=== PATIENT | male | born 1960 | race Caucasian/White ===

== ENCOUNTER 2021-11-26 15:41 | Outpatient (CLI) | payer OTHER, SELFPAY ==
[2021-11-26 13:46] LABS: Albumin* 4.7 g/dL (3.3-5.0)
[2021-11-26 13:47] LABS: Chloride* 99 mmol/L (96-114); Potassium* 4.4 mmol/L (3.6-5.1); Sodium* 138 mmol/L (135-149)
[2021-11-26 13:49] LABS: Aspartate Amino Transferase* 36 U/L (12-35); Bilirubin Total* 0.7 mg/dL (0.1-1.5); Carbon Dioxide* 28 mmol/L (20-32); Creatinine* 0.7 mg/dL (0.5-1.5); Estimated Glomerular Filt Rate 105 ml/min; Total Protein* 7.5 g/dL (6.0-8.3)
[2021-11-26 13:50] LABS: Alanine Aminotransferase* 32 U/L (4-50); Alkaline Phosphatase* 86 U/L (40-150); Blood Urea Nitrogen* 12 mg/dL (7-30); Calcium* 9.4 mg/dL (8.4-10.6); Glucose* 159 mg/dL (60-115)
[2021-12-03 02:16] LABS: Sex Hormone Binding Globulin 19 nmol/L (19-76); Testosterone, LC-MS/MS 187 ng/dL (300-720)
== END 2021-11-26 15:42 | disposition home or self-care (01) ==
PROVIDERS: PCP Family Medicine; Visit Provider Family Medicine
DX: E11.40 Type 2 diabetes mellitus with diabetic neuropathy, unspecified (principal); I10 Essential (primary) hypertension; R79.89 Other specified abnormal findings of blood chemistry
CPT/HCPCS: 80053; 84270; 84402; 84403

== ENCOUNTER 2022-01-03 09:39 | Outpatient (CLI) | payer OTHER, SELFPAY ==
--- NOTE | 2022-01-03 09:45 | CRLHL7_ITS ---
For Patients: As a result of the Century Cures Act, medical imaging exams and procedure reports are released immediately into your electronic medical record. You may view this report before your referring provider. If you have questions, please contact your health care provider. INDICATION: DECREASED PULSES RT<LT TECHNIQUE: Bilateral lower extremity arterial duplex ultrasound with color Doppler and spectral waveform analysis. COMPARISON: None. FINDINGS: Right leg: Systolic velocities are within normal limits. Color Doppler and spectral waveform analysis demonstrates triphasic waveforms are demonstrated throughout. Left leg: Systolic velocities are within normal limits. Color Doppler and spectral waveform analysis demonstrates triphasic waveforms are demonstrated throughout. IMPRESSION: No major occlusions or significant stenoses. Normal study. Dictated by Curtis Guo MD @ 01/03/2022 11:20:05 AM (Electronically Signed)
== END 2022-01-03 09:40 | disposition home or self-care (01) ==
LOC: US 09:41
PROVIDERS: PCP Family Medicine; Visit Provider Family Medicine
DX: E11.40 Type 2 diabetes mellitus with diabetic neuropathy, unspecified (principal)
CPT/HCPCS: 93926

== ENCOUNTER 2022-05-13 09:14 | Outpatient (CLI) | payer OTHER, SELFPAY ==
--- OUTSIDE RECORDS SUMMARY | 2022-05-14 05:07 | XMS_ITS | Continuity of Care Document ---
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 Role Phone Oly Villafuerte CRNA Unavailable Unavailable Allergies, Adverse Reactions, Alerts Substance Reaction Status Criticality ampicillin HivesHives Active No Information Medications Medication Instructions Dosage Effective Dates (start - stop) Status Comments cetirizine 10 mg tablet take 1 tablet by oral route every day 10 MG - Active Invokana 100 mg tablet take 1 tablet by oral route every day before the first meal of the day 100 MG - Active losartan 50 mg tablet take 1 tablet by oral route every day 50 MG - Active atorvastatin 10 mg tablet take 1 tablet by oral route every day 10 MG - Active tamsulosin 0.4 mg capsule take 1 capsule by oral route every day 1/2 hour following the same meal each day 0.4 MG - Active metformin 500 mg tablet take 1 tablet by oral route 2 times every day with morning and evening meals 500 MG - Active testosterone 20.25 mg/1.25 gram (1.62 %) transdermal gel pump apply (20.25MG) by topical route every day in the morning to each upper arm and shoulder for a total dose of 40.5mg 20.25 MG - Active TESTOSTERONE (unknown strength) apply by topical route every day in the morning to each upper arm and shoulder for a total dose of 40.5mg Not Available - No Longer Active Procedures Procedure Date Colonoscopy Flex; W/remov Les- Level Iv-surg Path Gross/micro Advance Directives Directive Yes / No Effective Date File Name No Information Encounters Encounter Description Practice Location Reason(s) For Visit Diagnoses Date Provider Providers Copied on Encounter [facility], [address] [address], [place], [place], [id number], [place] tel:[phone] [facility] No Information 2 Christo MERYL Oly. [address], [place], [place], [id number] , [place]. tel: [phone] Referring Provider: Arnel Shaw MD, [address], [place], [address] . tel:[phone] [facility], [address] [address], [place], [place], [id number], [place] tel:[phone] [facility] GI Symptoms or Concerns (chief complaint) Colorectal polypsDiverticulosi s of colon without diverticulitisEncou nter for screening for malignant neoplasm of colonBenign neoplasm of ascending colonBenign neoplasm of sigmoid colonDvrtclos of lg int w/o perforation or abscess w/o bleedingBenign neoplasm of ascending colon 2 Colin Seals. [address], [place], [place], [address] , [place]. tel: [phone] Referring Provider: Humphrey Pereyra MD, [address] [place] [address], [address]. tel:[phone] [facility], [address] [address], [place], [place], [address], [place] tel:[phone] [facility] No Information 2 Gurmeet Dent. [address], [place], [place], [address] , [place]. tel: [phone] Family History Family Member Type Diagnosis Age At Onset Father Problem (finding) Cancer, esophageal Sister Problem (finding) Cancer Immunizations Vaccine Date Status Comments SARS-COV-2 (COVID-19) vaccin e, mRNA, spike protein, LNP, preservative free, 30 mcg/0.3mL dose administered Note: [facility] bi-direct ional interface ; Source: Other Registry SARS-COV-2 (COVID-19) vaccin e, mRNA, spike protein, LNP, preservative free, 30 mcg/0.3mL dose administered Note: [facility] bi-direct ional interface ; Source: Other Registry Influenza administered Note: [facility] bi-d irectional interface ; Source: Other Registry Seasonal, quadrivalent, recombinant, injectable influenza vaccine, preservative free administered Note: [facility] bi-direct ional interface ; Source: Other Registry Seasonal, quadrivalent, recombinant, injectable influenza vaccine, preservative free administered Note: [facility] bi-direct ional interface ; Source: Other Registry tetanus toxoid, reduced diphtheria toxoid, and acellular pertussis vaccine, adsorbed administered Note: [facility] b i-directional interface ; Source: Other Registry Influenza administered Note: [facility] bi-d irectional interface ; Source: Other Registry Afluria Qd administered Note: [facility] bi-directional interface ; Source: Other Registry Prevnar 13 administered Note: [facility] bi-d irectional interface ; Source: Other Registry Afluria Qd administered Note: [facility] bi-directional interface ; Source: Other Registry Influenza, seasonal, injectable administe red Note: [facility] bi- directional interface ; Source: Other Registry Pneumovax 23 administered Note: [facility] bi-d irectional interface ; Source: Other Registry Influenza, seasonal, injectable administe red Note: [facility] bi- directional interface ; Source: Other Registry Influenza, seasonal, injectable administe red Note: [facility] bi- directional interface ; Source: Other Registry Influenza, seasonal, injectable administe red Note: [facility] bi- directional interface ; Source: Other Registry tetanus toxoid, reduced diphtheria toxoid, and acellular pertussis vaccine, adsorbed administered Note: [facility] b i-directional interface ; Source: Other Registry Influenza, seasonal, injectable administe red Note: [facility] bi- directional interface ; Source: Other Registry Influenza, seasonal, injectable administe red Note: [facility] bi- directional interface ; Source: Other Registry Influenza, seasonal, injectable administe red Note: [facility] bi- directional interface ; Source: Other Registry influenza virus vaccine, unspecified formulation administered Note: [facility] bi-di rectional interface ; Source: Other Registry Payers Payer name Insurance type Covered libertarian ID Brigitte ortez(s) [facility] [id number] Social History Type Description Quantity Date Captured Comments Sex Male Smoking Status No Information Chief Complaint And Reason For Visit No Information Reason For Referral Reason For Referral No Information Plan Of Treatment Date Type Action Status No Information History Of Present Illness Encounter Date Complaint History Of Prese nt Illness GI Symptoms or Concerns Functional Status Date Functional Assessmen t No Information Medications Administered Medication Instructions Dosage Effective Dates (start - stop) Status Comments TESTOSTERONE (unknown strength) apply by topical route every day in the morning to each upper arm and shoulder for a total dose of 40.5mg Not Available - No Longer Active Instructions Date Instruction Additional Infor mation No Information Assessments Type Assessment Date No Information Patient Care Teams Name Effective Dates (start - stop) Status Members No Information
== END 2022-05-13 09:15 | disposition home or self-care (01) ==
LOC: NFLDREF 05-14 05:01
PROVIDERS: PCP Family Medicine; Referring Provider Family Medicine; Visit Provider Family Medicine
DX: E11.9 Type 2 diabetes mellitus without complications (principal); E78.00 Pure hypercholesterolemia, unspecified; I10 Essential (primary) hypertension; R79.89 Other specified abnormal findings of blood chemistry
CPT/HCPCS: 80053; 84270; 84402; 84403

== ENCOUNTER 2022-08-19 11:08 | Outpatient (CLI) | payer OTHER, SELFPAY ==
[2022-08-19 14:05] LABS: Albumin* 4.7 g/dL (3.3-5.0); Chloride* 101 mmol/L (96-114)
[2022-08-19 14:06] LABS: Potassium* 4.2 mmol/L (3.6-5.1); Sodium* 137 mmol/L (135-149)
[2022-08-19 14:08] LABS: Alkaline Phosphatase* 74 U/L (40-150); Aspartate Amino Transferase* 50 U/L (12-35); Bilirubin Total* 0.9 mg/dL (0.1-1.5); Blood Urea Nitrogen* 13 mg/dL (7-30); Carbon Dioxide* 23 mmol/L (20-32); Creatinine* 0.6 mg/dL (0.5-1.5); Estimated Glomerular Filt Rate 110 ml/min; Total Protein* 8.2 g/dL (6.0-8.3)
[2022-08-19 14:09] LABS: Alanine Aminotransferase* 25 U/L (4-50); Calcium* 9.4 mg/dL (8.4-10.6); Glucose* 144 mg/dL (60-115); Lipase* 138 U/L (23-300)
[2022-08-22 10:11] LABS: Sex Hormone Binding Globulin 20 nmol/L (19-76); Testosterone, Adult Male 239 ng/dL (300-720); Testosterone, Free Calculation 53 pg/mL (47-244); Testosterone, Percentage Free 2.2 % (1.6-2.9)
== END 2022-08-19 11:09 | disposition home or self-care (01) ==
PROVIDERS: PCP Family Medicine; Visit Provider Family Medicine
DX: E11.9 Type 2 diabetes mellitus without complications (principal); E78.00 Pure hypercholesterolemia, unspecified; I10 Essential (primary) hypertension; R79.89 Other specified abnormal findings of blood chemistry
CPT/HCPCS: 80053; 80061; 83690; 84270; 84402; 84403

== ENCOUNTER 2022-09-19 15:46 | Outpatient (CLI) | payer OTHER, SELFPAY | END 2022-09-19 15:47 | disposition home or self-care (01) | LOC: LKVREF 15:48 | PROVIDERS: PCP Family Medicine; Visit Provider Family Medicine | DX: E11.9 Type 2 diabetes mellitus without complications (principal); Z12.5 Encounter for screening for malignant neoplasm of prostate | CPT/HCPCS: 84153 ==

== ENCOUNTER 2022-12-07 07:29 | Outpatient (CLI) | payer OTHER, SELFPAY ==
[2022-12-07 09:46] VITALS: BP 126/85; PULSE 90; RESP 16
[2022-12-07] MEDS: SODIUM CHLORIDE 0.9 % (FLUSH) 10 ML SYRINGE IVF (09:48)
[2022-12-07] MEDS: REGADENOSON 0.4 MG/5 ML SYRINGE IVP (09:48)
--- NOTE | 2022-12-07 09:55 | PM.ST ---
Stress Test Note Date Date of test: 12/07/22 Providers Primary care provider: Humphrey Pereyra Stress test physician: Dl Barrera Stress Test Note Stress test ordered: Lexiscсергей Indication for test: Preoperative, chest pain Stress test medicine: Lexiscan Results discussion: Patient is a very nice gentleman presents here for preoperative examination, and Lexiscan, he is going to undergo back surgery, and can not walk on the treadmill. Discussion the risks benefits and side effects of the test are discussed with him, he accepts these like to proceed, cardiac stress test medical history form is reviewed entirely. Preoperative EKG shows normal sinus rhythm, with a ventricular rate of 75, blood pressure 136/81. No acute ST wave changes are noted. Some mild at T-wave changes are noted. Which appear to be old. Lexiscan nonwalking protocol is done for duration of 5 minutes, his maximum heart rate was 105, which is 77% of the maximum, during this test he was asymptomatic. There is no ST wave changes suggestive of ischemia, there is no dysrhythmias, and recovered normally Impression: Negative electrographic portion of Lexiscan. Follow up suggested: Await nuclear images which will be read by Cardiology and nuclear Medicine, clinical correlation with these will be needed. Patient was asymptomatic and back to baseline on leaving the hospital.
== END 2022-12-07 10:40 | disposition home or self-care (01) ==
LOC: STRESS 07:29
PROVIDERS: PCP Family Medicine; Visit Provider Family Medicine
DX: Z01.818 Encounter for other preprocedural examination (principal); R07.9 Chest pain, unspecified
CPT/HCPCS: 78452; 93016; 93017; A9500; J2785

== ENCOUNTER 2022-12-23 09:21 | Outpatient (CLI) | payer OTHER, SELFPAY | END 2022-12-23 09:22 | disposition home or self-care (01) | LOC: NFLDREF 12-29 09:29 | PROVIDERS: PCP Family Medicine; Referring Provider Family Medicine; Visit Provider Family Medicine | DX: E11.40 Type 2 diabetes mellitus with diabetic neuropathy, unspecified (principal); R79.89 Other specified abnormal findings of blood chemistry; E11.9 Type 2 diabetes mellitus without complications | CPT/HCPCS: 80053; 80061; 82043; 82570; 84270; 84402; 84403 ==

== ENCOUNTER 2023-04-06 08:48 | Outpatient (CLI) | payer OTHER, SELFPAY | END 2023-04-06 08:49 | disposition home or self-care (01) | LOC: NFLDREF 04-17 15:46 | PROVIDERS: PCP Family Medicine; Referring Provider Family Medicine; Visit Provider Family Medicine | DX: R79.89 Other specified abnormal findings of blood chemistry (principal) | CPT/HCPCS: 80053; 84270; 84402; 84403 ==

== ENCOUNTER 2023-06-11 12:24 | Outpatient (CLI) | payer OTHER, SELFPAY | END 2023-06-11 12:25 | disposition home or self-care (01) | LOC: NFLDREF 06-13 08:53 | PROVIDERS: PCP Family Medicine; Referring Provider Family Medicine; Visit Provider Family Medicine | DX: E11.65 Type 2 diabetes mellitus with hyperglycemia (principal); Z79.84 Long term (current) use of oral hypoglycemic drugs | CPT/HCPCS: 82043; 82570 ==